=== PATIENT | male | born 1940 | race Caucasian/White ===

== ENCOUNTER → 2022-01-19 | Outpatient (CLI) | payer MEDICARE | LOC: RAD 08:37 | DX: J84.10 Pulmonary fibrosis, unspecified (principal); C7A.00 Malignant carcinoid tumor of unspecified site; K31.9 Disease of stomach and duodenum, unspecified; K86.9 Disease of pancreas, unspecified | CPT/HCPCS: Q9967 ==

== ENCOUNTER → 2022-02-16 | Outpatient (CLI) | payer MEDICARE ==
[2022-02-16 14:17] LABS: BASO # 0.04 K/mm3 (0.02-0.10); EOS # 0.24 K/mm3 (0.04-0.40); EOS % 3.8 % (0.0-4.0); HEMATOCRIT 40.7 % (42.0-52.0); HEMOGLOBIN 13.1 g/dL (13.5-18.0); LYMPH# 1.99 K/mm3 (1.50-4.00); MEAN CELL VOLUME 98 fl (78-100); MEAN CORPUSCULAR HEMOGLOBIN 32 pg (27-31); MEAN CORPUSCULAR HGB CONC 32 g/dL (33-37); MEAN PLATELET VOLUME 9.8 fl (7.4-10.4); MONO # 0.44 K/mm3 (0.20-0.80); NEU # 3.66 K/mm3 (1.40-6.50); PLATELET COUNT 144 K/mm3 (130-400); RED BLOOD COUNT 4.16 M/mm3 (4.20-5.60); RED CELL DISTRIBUTION WIDTH 12.4 % (11.5-14.5); WHITE BLOOD COUNT 6.4 K/mm3 (4.8-10.8)
[2022-02-16 14:28] LABS: ALBUMIN 3.8 g/dL (3.4-4.8)
[2022-02-16 14:29] LABS: POTASSIUM 4.1 mmol/L (3.5-5.1)
[2022-02-16 14:30] LABS: CALCIUM 9.1 mg/dL (8.3-10.5)
[2022-02-16 14:31] LABS: TOTAL PROTEIN 6.3 g/dL (6.2-8.1)
[2022-02-16 14:33] LABS: TOTAL BILIRUBIN 0.6 mg/dL (0.2-1.2)
== END ==
LOC: LAB 13:59
PROVIDERS: Internal Medicine Medical Oncology
DX: C7A.021 Malignant carcinoid tumor of the cecum (principal)

== ENCOUNTER → 2022-03-21 | Outpatient (CLI) | payer MEDICARE ==
[2022-03-21 14:04] LABS: BASO # 0.05 K/mm3 (0.02-0.10); EOS # 0.27 K/mm3 (0.04-0.40); EOS % 4.5 % (0.0-4.0); HEMATOCRIT 40.4 % (42.0-52.0); HEMOGLOBIN 12.9 g/dL (13.5-18.0); LYMPH# 1.81 K/mm3 (1.50-4.00); MEAN CELL VOLUME 98 fl (78-100); MEAN CORPUSCULAR HEMOGLOBIN 31 pg (27-31); MEAN CORPUSCULAR HGB CONC 32 g/dL (33-37); MEAN PLATELET VOLUME 10.5 fl (7.4-10.4); MONO # 0.44 K/mm3 (0.20-0.80); NEU # 3.43 K/mm3 (1.40-6.50); PLATELET COUNT 138 K/mm3 (130-400); RED BLOOD COUNT 4.13 M/mm3 (4.20-5.60); RED CELL DISTRIBUTION WIDTH 12.1 % (11.5-14.5)
[2022-03-21 14:09] LABS: ALBUMIN 3.7 g/dL (3.4-4.8); POTASSIUM 3.9 mmol/L (3.5-5.1)
[2022-03-21 14:12] LABS: TOTAL PROTEIN 6.4 g/dL (6.2-8.1)
[2022-03-21 14:14] LABS: TOTAL BILIRUBIN 0.7 mg/dL (0.2-1.2)
== END ==
LOC: LAB 13:41
PROVIDERS: Internal Medicine Medical Oncology
DX: C7A.021 Malignant carcinoid tumor of the cecum (principal)

== ENCOUNTER → 2022-04-22 | Outpatient (CLI) | payer MEDICARE ==
[2022-04-22 15:52] LABS: BASO # 0.03 K/mm3 (0.02-0.10); EOS # 0.24 K/mm3 (0.04-0.40); EOS % 3.8 % (0.0-4.0); HEMATOCRIT 37.2 % (42.0-52.0); HEMOGLOBIN 12.2 g/dL (13.5-18.0); LYMPH# 2.16 K/mm3 (1.50-4.00); MEAN CELL VOLUME 96 fl (78-100); MEAN CORPUSCULAR HEMOGLOBIN 32 pg (27-31); MEAN CORPUSCULAR HGB CONC 33 g/dL (33-37); MEAN PLATELET VOLUME 9.8 fl (7.4-10.4); MONO # 0.52 K/mm3 (0.20-0.80); NEU # 3.45 K/mm3 (1.40-6.50); PLATELET COUNT 154 K/mm3 (130-400); RED BLOOD COUNT 3.87 M/mm3 (4.20-5.60); RED CELL DISTRIBUTION WIDTH 12.3 % (11.5-14.5); WHITE BLOOD COUNT 6.4 K/mm3 (4.8-10.8)
[2022-04-22 16:01] LABS: ALBUMIN 3.7 g/dL (3.4-4.8); POTASSIUM 3.9 mmol/L (3.5-5.1)
[2022-04-22 16:02] LABS: CALCIUM 8.9 mg/dL (8.3-10.5)
[2022-04-22 16:03] LABS: TOTAL PROTEIN 6.5 g/dL (6.2-8.1)
[2022-04-22 16:05] LABS: TOTAL BILIRUBIN 0.9 mg/dL (0.2-1.2)
== END ==
LOC: LAB 15:39
PROVIDERS: Internal Medicine Medical Oncology
DX: C7A.021 Malignant carcinoid tumor of the cecum (principal)

== ENCOUNTER → 2022-05-20 | Outpatient (CLI) | payer MEDICARE ==
[2022-05-20 10:37] LABS: BASO # 0.03 K/mm3 (0.02-0.10); EOS # 0.25 K/mm3 (0.04-0.40); EOS % 4.8 % (0.0-4.0); HEMATOCRIT 39.6 % (42.0-52.0); HEMOGLOBIN 12.9 g/dL (13.5-18.0); LYMPH# 1.59 K/mm3 (1.50-4.00); MEAN CELL VOLUME 95 fl (78-100); MEAN CORPUSCULAR HEMOGLOBIN 31 pg (27-31); MEAN CORPUSCULAR HGB CONC 33 g/dL (33-37); MEAN PLATELET VOLUME 9.3 fl (7.4-10.4); MONO # 0.31 K/mm3 (0.20-0.80); PLATELET COUNT 131 K/mm3 (130-400); RED BLOOD COUNT 4.16 M/mm3 (4.20-5.60); RED CELL DISTRIBUTION WIDTH 12.1 % (11.5-14.5); WHITE BLOOD COUNT 5.2 K/mm3 (4.8-10.8)
[2022-05-20 10:50] LABS: ALBUMIN 3.8 g/dL (3.4-4.8); POTASSIUM 3.8 mmol/L (3.5-5.1)
[2022-05-20 10:51] LABS: CALCIUM 9.1 mg/dL (8.3-10.5)
[2022-05-20 10:53] LABS: TOTAL PROTEIN 6.6 g/dL (6.2-8.1)
[2022-05-20 10:54] LABS: TOTAL BILIRUBIN 0.6 mg/dL (0.2-1.2)
== END ==
LOC: LAB 10:16
PROVIDERS: Internal Medicine Medical Oncology
DX: C7A.021 Malignant carcinoid tumor of the cecum (principal)

== ENCOUNTER → 2022-06-17 | Outpatient (CLI) | payer MEDICARE ==
[2022-06-17 14:01] LABS: BASO # 0.02 K/mm3 (0.02-0.10); EOS # 0.16 K/mm3 (0.04-0.40); EOS % 2.7 % (0.0-4.0); HEMOGLOBIN 12.8 g/dL (13.5-18.0); LYMPH# 1.79 K/mm3 (1.50-4.00); MEAN CELL VOLUME 95 fl (78-100); MEAN CORPUSCULAR HEMOGLOBIN 31 pg (27-31); MEAN CORPUSCULAR HGB CONC 33 g/dL (33-37); MEAN PLATELET VOLUME 9.9 fl (7.4-10.4); MONO # 0.39 K/mm3 (0.20-0.80); NEU # 3.49 K/mm3 (1.40-6.50); PLATELET COUNT 143 K/mm3 (130-400); RED CELL DISTRIBUTION WIDTH 12.2 % (11.5-14.5); WHITE BLOOD COUNT 5.9 K/mm3 (4.8-10.8)
[2022-06-17 14:10] LABS: ALBUMIN 3.8 g/dL (3.4-4.8); POTASSIUM 3.9 mmol/L (3.5-5.1)
[2022-06-17 14:12] LABS: TOTAL PROTEIN 6.7 g/dL (6.2-8.1)
[2022-06-17 14:14] LABS: TOTAL BILIRUBIN 0.6 mg/dL (0.2-1.2)
== END ==
LOC: LAB 13:42
PROVIDERS: Internal Medicine Medical Oncology
DX: C7A.021 Malignant carcinoid tumor of the cecum (principal)

== ENCOUNTER → 2022-07-18 | Outpatient (CLI) | payer MEDICARE ==
[2022-07-18 10:31] LABS: BASO # 0.05 K/mm3 (0.02-0.10); EOS # 0.17 K/mm3 (0.04-0.40); EOS % 2.8 % (0.0-4.0); HEMATOCRIT 39.7 % (42.0-52.0); HEMOGLOBIN 12.7 g/dL (13.5-18.0); LYMPH# 1.53 K/mm3 (1.50-4.00); MEAN CELL VOLUME 96 fl (78-100); MEAN CORPUSCULAR HEMOGLOBIN 31 pg (27-31); MEAN CORPUSCULAR HGB CONC 32 g/dL (33-37); MEAN PLATELET VOLUME 10.2 fl (7.4-10.4); MONO # 0.42 K/mm3 (0.20-0.80); PLATELET COUNT 142 K/mm3 (130-400); RED BLOOD COUNT 4.12 M/mm3 (4.20-5.60); RED CELL DISTRIBUTION WIDTH 12.5 % (11.5-14.5)
[2022-07-18 10:33] LABS: ALBUMIN 3.7 g/dL (3.4-4.8)
[2022-07-18 10:35] LABS: CALCIUM 9.1 mg/dL (8.3-10.5)
[2022-07-18 10:36] LABS: TOTAL PROTEIN 6.5 g/dL (6.2-8.1)
[2022-07-18 10:38] LABS: TOTAL BILIRUBIN 0.9 mg/dL (0.2-1.2)
== END ==
LOC: LAB 09:55
PROVIDERS: Internal Medicine Medical Oncology
DX: C7A.021 Malignant carcinoid tumor of the cecum (principal)

== ENCOUNTER → 2022-11-08 | Outpatient (CLI) | payer MEDICARE ==
[~2022-11-08] MED LIST: CLOPIDOGREL75 M2 PO; FLOMAX0.4 MG PO; KETOROLAC10 MG PO; LOPRESSOR 225 MG/TAB PO; LORAZEPAM1 M1 PO; SIMVASTATIN20 M1 PO; TYLENOL EXTRA500 M2 PO; ZOFRAN ODT4 MG PO
[2022-11-08 12:11] LABS: BASO # 0.04 K/mm3 (0.02-0.10); EOS # 0.22 K/mm3 (0.04-0.40); EOS % 3.4 % (0.0-4.0); HEMOGLOBIN 13.6 g/dL (13.5-18.0); LYMPH# 1.64 K/mm3 (1.50-4.00); MEAN CELL VOLUME 96 fl (78-100); MEAN CORPUSCULAR HEMOGLOBIN 31 pg (27-31); MEAN CORPUSCULAR HGB CONC 32 g/dL (33-37); MEAN PLATELET VOLUME 10.4 fl (7.4-10.4); MONO # 0.44 K/mm3 (0.20-0.80); NEU # 4.14 K/mm3 (1.40-6.50); PLATELET COUNT 153 K/mm3 (130-400); RED BLOOD COUNT 4.38 M/mm3 (4.20-5.60); RED CELL DISTRIBUTION WIDTH 12.1 % (11.5-14.5); WHITE BLOOD COUNT 6.5 K/mm3 (4.8-10.8)
[2022-11-08 12:15] LABS: ALBUMIN 3.9 g/dL (3.4-4.8)
[2022-11-08 12:16] LABS: CALCIUM 9.2 mg/dL (8.3-10.5)
[2022-11-08 12:17] LABS: TOTAL PROTEIN 6.7 g/dL (6.2-8.1)
[2022-11-08 12:19] LABS: TOTAL BILIRUBIN 0.5 mg/dL (0.2-1.2)
== END ==
LOC: LAB 11:53
PROVIDERS: Internal Medicine Medical Oncology
DX: C7A.021 Malignant carcinoid tumor of the cecum (principal)

== ENCOUNTER → 2022-12-05 | Outpatient (CLI) | payer MEDICARE ==
[2022-12-05 14:32] LABS: ALBUMIN 3.7 g/dL (3.4-4.8); POTASSIUM 3.3 mmol/L (3.5-5.1)
[2022-12-05 14:33] LABS: CALCIUM 9.1 mg/dL (8.3-10.5)
[2022-12-05 14:34] LABS: TOTAL PROTEIN 6.7 g/dL (6.2-8.1)
[2022-12-05 14:36] LABS: TOTAL BILIRUBIN 0.5 mg/dL (0.2-1.2)
[2022-12-05 15:01] LABS: BASO # 0.04 K/mm3 (0.02-0.10); EOS # 0.22 K/mm3 (0.04-0.40); EOS % 3.8 % (0.0-4.0); HEMATOCRIT 41.9 % (42.0-52.0); HEMOGLOBIN 13.4 g/dL (13.5-18.0); MEAN CELL VOLUME 97 fl (78-100); MEAN CORPUSCULAR HEMOGLOBIN 31 pg (27-31); MEAN CORPUSCULAR HGB CONC 32 g/dL (33-37); MEAN PLATELET VOLUME 10.5 fl (7.4-10.4); MONO # 0.41 K/mm3 (0.20-0.80); NEU # 3.46 K/mm3 (1.40-6.50); PLATELET COUNT 161 K/mm3 (130-400); RED BLOOD COUNT 4.31 M/mm3 (4.20-5.60); RED CELL DISTRIBUTION WIDTH 12.4 % (11.5-14.5); WHITE BLOOD COUNT 5.7 K/mm3 (4.8-10.8)
== END ==
LOC: LAB 14:11
PROVIDERS: Internal Medicine Medical Oncology
DX: C7A.00 Malignant carcinoid tumor of unspecified site (principal)

== ENCOUNTER → 2023-01-02 | Outpatient (CLI) | payer MEDICARE ==
[2023-01-02 10:49] LABS: BASO # 0.05 K/mm3 (0.02-0.10); EOS # 0.16 K/mm3 (0.04-0.40); EOS % 2.9 % (0.0-4.0); HEMATOCRIT 40.9 % (42.0-52.0); HEMOGLOBIN 13.2 g/dL (13.5-18.0); LYMPH# 1.63 K/mm3 (1.50-4.00); MEAN CELL VOLUME 97 fl (78-100); MEAN CORPUSCULAR HEMOGLOBIN 31 pg (27-31); MEAN CORPUSCULAR HGB CONC 32 g/dL (33-37); MEAN PLATELET VOLUME 11.1 fl (7.4-10.4); MONO # 0.29 K/mm3 (0.20-0.80); NEU # 3.44 K/mm3 (1.40-6.50); PLATELET COUNT 139 K/mm3 (130-400); RED BLOOD COUNT 4.23 M/mm3 (4.20-5.60); RED CELL DISTRIBUTION WIDTH 12.4 % (11.5-14.5); WHITE BLOOD COUNT 5.6 K/mm3 (4.8-10.8)
[2023-01-02 10:53] LABS: ALBUMIN 3.8 g/dL (3.4-4.8); POTASSIUM 3.7 mmol/L (3.5-5.1)
[2023-01-02 10:54] LABS: CALCIUM 9.2 mg/dL (8.3-10.5)
[2023-01-02 10:55] LABS: TOTAL PROTEIN 6.5 g/dL (6.2-8.1)
[2023-01-02 10:57] LABS: TOTAL BILIRUBIN 0.7 mg/dL (0.2-1.2)
== END ==
LOC: LAB 10:11
PROVIDERS: Internal Medicine Medical Oncology
DX: C7A.021 Malignant carcinoid tumor of the cecum (principal)

== ENCOUNTER → 2023-07-17 | Outpatient (CLI) | payer MEDICARE ==
[2023-07-17 13:43] LABS: BASO # 0.02 K/mm3 (0.02-0.10); EOS # 0.13 K/mm3 (0.04-0.40); HEMATOCRIT 41.5 % (42.0-52.0); HEMOGLOBIN 13.1 g/dL (13.5-18.0); LYMPH# 1.46 K/mm3 (1.50-4.00); MEAN CELL VOLUME 96 fl (78-100); MEAN CORPUSCULAR HEMOGLOBIN 30 pg (27-31); MEAN CORPUSCULAR HGB CONC 32 g/dL (33-37); MEAN PLATELET VOLUME 10.5 fl (7.4-10.4); MONO # 0.29 K/mm3 (0.20-0.80); NEU # 2.42 K/mm3 (1.40-6.50); PLATELET COUNT 122 K/mm3 (130-400); RED BLOOD COUNT 4.32 M/mm3 (4.20-5.60); RED CELL DISTRIBUTION WIDTH 13.2 % (11.5-14.5); WHITE BLOOD COUNT 4.3 K/mm3 (4.8-10.8)
[2023-07-17 13:48] LABS: ALBUMIN 3.8 g/dL (3.4-4.8); POTASSIUM 3.7 mmol/L (3.5-5.1)
[2023-07-17 13:50] LABS: CALCIUM 9.4 mg/dL (8.3-10.5)
[2023-07-17 13:51] LABS: TOTAL PROTEIN 6.8 g/dL (6.2-8.1)
[2023-07-17 13:53] LABS: TOTAL BILIRUBIN 0.6 mg/dL (0.2-1.2)
== END ==
LOC: LAB 13:27
DX: C7A.021 Malignant carcinoid tumor of the cecum (principal)

== ENCOUNTER → 2023-10-09 | Outpatient (CLI) | payer MEDICARE ==
[2023-10-09 10:37] LABS: BASO # 0.04 K/mm3 (0.02-0.10); EOS # 0.12 K/mm3 (0.04-0.40); EOS % 2.5 % (0.0-4.0); HEMATOCRIT 37.9 % (42.0-52.0); HEMOGLOBIN 12.1 g/dL (13.5-18.0); LYMPH# 1.29 K/mm3 (1.50-4.00); MEAN CELL VOLUME 97 fl (78-100); MEAN CORPUSCULAR HEMOGLOBIN 31 pg (27-31); MEAN CORPUSCULAR HGB CONC 32 g/dL (33-37); MEAN PLATELET VOLUME 10.5 fl (7.4-10.4); MONO # 0.27 K/mm3 (0.20-0.80); NEU # 3.15 K/mm3 (1.40-6.50); PLATELET COUNT 140 K/mm3 (130-400); RED BLOOD COUNT 3.91 M/mm3 (4.20-5.60); RED CELL DISTRIBUTION WIDTH 12.8 % (11.5-14.5); WHITE BLOOD COUNT 4.9 K/mm3 (4.8-10.8)
[2023-10-09 10:44] LABS: ALBUMIN 3.7 g/dL (3.4-4.8)
[2023-10-09 10:46] LABS: CALCIUM 8.8 mg/dL (8.3-10.5)
[2023-10-09 10:47] LABS: TOTAL PROTEIN 6.6 g/dL (6.2-8.1)
[2023-10-09 10:49] LABS: TOTAL BILIRUBIN 0.5 mg/dL (0.2-1.2)
== END ==
LOC: LAB 10:21
PROVIDERS: Internal Medicine
DX: C7A.021 Malignant carcinoid tumor of the cecum (principal)

== ENCOUNTER → 2023-11-07 | Outpatient (CLI) | payer MEDICARE ==
[2023-11-07 13:42] LABS: BASO # 0.03 K/mm3 (0.02-0.10); EOS # 0.11 K/mm3 (0.04-0.40); EOS % 2.3 % (0.0-4.0); HEMATOCRIT 39.3 % (42.0-52.0); HEMOGLOBIN 12.6 g/dL (13.5-18.0); MEAN CELL VOLUME 96 fl (78-100); MEAN CORPUSCULAR HEMOGLOBIN 31 pg (27-31); MEAN CORPUSCULAR HGB CONC 32 g/dL (33-37); MEAN PLATELET VOLUME 9.7 fl (7.4-10.4); MONO # 0.37 K/mm3 (0.20-0.80); NEU # 2.95 K/mm3 (1.40-6.50); PLATELET COUNT 155 K/mm3 (130-400); RED CELL DISTRIBUTION WIDTH 12.2 % (11.5-14.5); WHITE BLOOD COUNT 4.9 K/mm3 (4.8-10.8)
[2023-11-07 13:49] LABS: ALBUMIN 3.8 g/dL (3.4-4.8)
[2023-11-07 13:51] LABS: TOTAL PROTEIN 6.8 g/dL (6.2-8.1)
[2023-11-07 13:53] LABS: TOTAL BILIRUBIN 0.7 mg/dL (0.2-1.2)
== END ==
LOC: LAB 13:26
PROVIDERS: Internal Medicine
DX: C7A.021 Malignant carcinoid tumor of the cecum (principal)

== ENCOUNTER → 2023-11-30 | Outpatient (CLI) | payer MEDICARE | LOC: RAD 08:50 | DX: C7A.021 Malignant carcinoid tumor of the cecum (principal) | CPT/HCPCS: Q9967 ==

== ENCOUNTER → 2023-12-04 | Outpatient (CLI) | payer MEDICARE ==
[2023-12-04 14:49] LABS: BASO # 0.05 K/mm3 (0.02-0.10); EOS # 0.26 K/mm3 (0.04-0.40); EOS % 4.9 % (0.0-4.0); HEMATOCRIT 35.5 % (42.0-52.0); HEMOGLOBIN 11.3 g/dL (13.5-18.0); LYMPH# 1.44 K/mm3 (1.50-4.00); MEAN CELL VOLUME 96 fl (78-100); MEAN CORPUSCULAR HEMOGLOBIN 31 pg (27-31); MEAN CORPUSCULAR HGB CONC 32 g/dL (33-37); MEAN PLATELET VOLUME 10.7 fl (7.4-10.4); MONO # 0.37 K/mm3 (0.20-0.80); NEU # 3.22 K/mm3 (1.40-6.50); PLATELET COUNT 152 K/mm3 (130-400); RED CELL DISTRIBUTION WIDTH 12.6 % (11.5-14.5); WHITE BLOOD COUNT 5.4 K/mm3 (4.8-10.8)
[2023-12-04 14:56] LABS: ALBUMIN 3.9 g/dL (3.4-4.8)
[2023-12-04 14:59] LABS: TOTAL PROTEIN 6.9 g/dL (6.2-8.1)
[2023-12-04 15:00] LABS: TOTAL BILIRUBIN 0.35 mg/dL (0.2-1.2)
== END ==
LOC: LAB 14:36
PROVIDERS: Internal Medicine
DX: C7A.021 Malignant carcinoid tumor of the cecum (principal)

== ENCOUNTER → 2024-01-01 | Outpatient (CLI) | payer MEDICARE ==
[2024-01-01 12:14] LABS: BASO # 0.04 K/mm3 (0.02-0.10); EOS # 0.15 K/mm3 (0.04-0.40); EOS % 2.9 % (0.0-4.0); HEMATOCRIT 31.7 % (42.0-52.0); LYMPH# 1.46 K/mm3 (1.50-4.00); MEAN CELL VOLUME 95 fl (78-100); MEAN CORPUSCULAR HEMOGLOBIN 30 pg (27-31); MEAN CORPUSCULAR HGB CONC 32 g/dL (33-37); MEAN PLATELET VOLUME 9.6 fl (7.4-10.4); MONO # 0.38 K/mm3 (0.20-0.80); NEU # 3.19 K/mm3 (1.40-6.50); PLATELET COUNT 163 K/mm3 (130-400); RED BLOOD COUNT 3.35 M/mm3 (4.20-5.60); RED CELL DISTRIBUTION WIDTH 12.3 % (11.5-14.5); WHITE BLOOD COUNT 5.2 K/mm3 (4.8-10.8)
[2024-01-01 12:23] LABS: ALBUMIN 3.8 g/dL (3.4-4.8)
[2024-01-01 12:25] LABS: CALCIUM 8.9 mg/dL (8.3-10.5)
[2024-01-01 12:26] LABS: TOTAL PROTEIN 7.1 g/dL (6.2-8.1)
[2024-01-01 12:28] LABS: TOTAL BILIRUBIN 0.3 mg/dL (0.2-1.2)
== END ==
LOC: LAB 12:03
PROVIDERS: Internal Medicine
DX: C7A.021 Malignant carcinoid tumor of the cecum (principal)